=== PATIENT | female | born 1980 | race Caucasian/White ===

== ENCOUNTER → 2017-02-09 | Outpatient (REF) | payer OTHER | LOC: M LAB REF 16:54 | PROVIDERS: ATTEND Advanced Practice Midwife | DX: Z12.4 Encounter for screening for malignant neoplasm of cervix (principal) ==

== ENCOUNTER → 2017-09-12 | Outpatient (REF) | payer OTHER ==
[2017-09-12 12:38] LABS: ALBUMIN 4.1 GM/DL (3.2-5.2); ALBUMIN/GLOBULIN RATIO 1.24 (1.00-1.93); ALKALINE PHOSPHATASE 36 U/L (45-117); ALT/SGPT 27 U/L (12-78); ANION GAP 2 MEQ/L (8-16); AST/SGOT 17 U/L (7-37); BILIRUBIN,TOTAL 0.7 MG/DL (0.2-1.0); BLOOD UREA NITROGEN 9 MG/DL (7-18); CARBON DIOXIDE LEVEL 30 MEQ/L (21-32); CHLORIDE LEVEL 109 MEQ/L (98-107); CHOLESTEROL LEVEL 188 MG/DL (<200); CHOLESTEROL RISK RATIO 3.186 (<5); CREATININE FOR GFR 1.01 MG/DL (0.55-1.30); GLOMERULAR FILTRATION RATE > 60.0 (>60); GLUCOSE, FASTING 82 MG/DL (70-100); HDL CHOLESTEROL 59 MG/DL (>40); LDL CHOLESTEROL 113.2 MG/DL (<100); NON-HDL-C 129 MG/DL; POTASSIUM SERUM 4.1 MEQ/L (3.5-5.1); SODIUM LEVEL 141 MEQ/L (136-145); TOTAL PROTEIN 7.4 GM/DL (6.4-8.2); TRIGLYCERIDES LEVEL 79 MG/DL (<150)
== END ==
LOC: M SFHCPLAZ 10:02
DX: Z00.00 Encounter for general adult medical examination without abnormal findings (principal); Z83.42 Family history of familial hypercholesterolemia; Z83.49 Family history of other endocrine, nutritional and metabolic diseases
CPT/HCPCS: 84443

== ENCOUNTER → 2018-04-27 | Outpatient (CLI) | payer OTHER ==
[2018-04-27 23:01] LABS: CHLAMYDIA DNA AMPLIFICATION NEGATIVE (NEGATIVE); GC DNA AMPLIFICATION NEGATIVE (NEGATIVE)
[2018-04-28 11:29] LABS: HEPATITIS A ANTIBODY IGM NEGATIVE (NEGATIVE); HEPATITIS B CORE ANTIBODY IGM NEGATIVE (NEGATIVE); HEPATITIS B SURFACE ANTIGEN NEGATIVE (NEGATIVE); HIV 1&2 SCREEN CENTAUR NEGATIVE (NEGATIVE)
[2018-04-28 11:29] LABS: HEPATITIS C VIRUS ABY INDEX 0.1 INDEX (<0.8)
[2018-04-30 00:06] LABS: HSV IgM TYPES 1&2 <0.91 Ratio (0.00-0.90); HSV TYPE I IgG SPECIFIC <0.91 index (0.00-0.90); HSV TYPE II IgG SPECIFIC <0.91 index (0.00-0.90)
== END ==
LOC: M LAB 16:23
DX: Z11.3 Encounter for screening for infections with a predominantly sexual mode of transmission (principal)
CPT/HCPCS: 87340

== ENCOUNTER → 2019-07-23 | Outpatient (CLI) | payer OTHER ==
--- NOTE | 2019-07-23 09:45 | REP ---
MRI STUDY OF THE LEFT KNEE WITHOUT CONTRAST: HISTORY: Pain in the left knee. Chronic knee pain. No known injury. Rule out lateral meniscal tear. No comparison imaging. TECHNIQUE: Axial, coronal, and sagittal imaging planes utilized. Proton density and T2-weighted scans were obtained with and without fat saturation. MRI FINDINGS: There is a [id number] joint effusion. There is a janeth articular fluid collection associated with the posterior aspect of the proximal tibiofibular articulation. This fluid collection is septated and is seen within the posterior and lateral popliteal soft tissues 12 mm in greatest diameter on axial images x 30 mm in greatest craniocaudal span. There is another smaller fluid collection extending posteriorly from the region of the intercondylar notch into the perivascular soft tissues. This fluid collection measures 20 mm in craniocaudal span. There is a zone of marrow edema in the lateral femoral condyle anteriorly at the level of the intercondylar notch. There is a focal articular cartilage full-thickness defect here and there is moderate chondromalacia of the opposing lateral patellar facet articular cartilage. There is some marrow edema at the inferior pole the patella. Cortical and medullary bone signal intensity are otherwise normal. Patellar and quadriceps tendons are intact. Anterior and posterior cruciate ligaments have an intact appearance. There is no evidence of medial or lateral collateral ligament disruption. There is medial and lateral tibial femoral articular spurring. No medial or lateral meniscal tear is appreciated. No other articular cartilage lesion is seen. 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 Focal articular cartilage defect in the superior lateral aspect of the femoral trochlear articular cartilage with underlying marrow edema. Advanced chondromalacia patella laterally with some patellar marrow edema. Moderate to large joint effusion with two posterior and lateral periarticular fluid collections consistent with small ganglions. No evidence of meniscal tear seen. Electronically Signed by Sonido Trammell MD 07/23/2019 01:02 P
== END ==
LOC: M RAD 06:40
PROVIDERS: ATTEND Orthopaedic Surgery Sports Medicine
DX: M25.562 Pain in left knee (principal)

== ENCOUNTER → 2020-04-30 | Outpatient (REF) | payer OTHER | LOC: M SFHCWAGY 17:27 | PROVIDERS: ATTEND Advanced Practice Midwife | DX: Z12.4 Encounter for screening for malignant neoplasm of cervix (principal) ==

== ENCOUNTER → 2020-11-21 | Outpatient (CLI) | payer OTHER ==
[2020-11-21 13:42] LABS: ALBUMIN 3.8 GM/DL (3.2-5.2); ALT/SGPT 28 U/L (12-78); BILIRUBIN,TOTAL 0.5 MG/DL (0.2-1.0); BLOOD UREA NITROGEN 13 MG/DL (7-18); CALCIUM LEVEL 9.4 MG/DL (8.5-10.1); CARBON DIOXIDE LEVEL 28 MEQ/L (21-32); CHLORIDE LEVEL 108 MEQ/L (98-107); CHOLESTEROL LEVEL 202 MG/DL (<200); CHOLESTEROL RISK RATIO 3.366 (<5); CREATININE FOR GFR 1.01 MG/DL (0.55-1.30); GLOMERULAR FILTRATION RATE > 60.0 (>60); GLUCOSE, FASTING 93 MG/DL (70-100); HDL CHOLESTEROL 60 MG/DL (>40); LDL CHOLESTEROL 131 MG/DL (<100); NON-HDL-C 142 MG/DL; POTASSIUM SERUM 4.6 MEQ/L (3.5-5.1); SODIUM LEVEL 142 MEQ/L (136-145); TOTAL PROTEIN 6.9 GM/DL (6.4-8.2); TRIGLYCERIDES LEVEL 53 MG/DL (<150)
== END ==
LOC: M PLALAB 09:59
PROVIDERS: ATTEND Nurse Practitioner Adult Health
DX: Z00.00 Encounter for general adult medical examination without abnormal findings (principal); Z83.2 Family history of diseases of the blood and blood-forming organs and certain disorders involving the immune mechanism; Z83.42 Family history of familial hypercholesterolemia; Z83.49 Family history of other endocrine, nutritional and metabolic diseases

== ENCOUNTER → 2022-12-17 | Outpatient (CLI) | payer BC ==
[2022-12-17 10:56] LABS: THYROID STIMULATING HORMONE 3.607 uIU/ML (0.55-4.78)
[2022-12-17 10:57] LABS: ALBUMIN 3.7 G/DL (3.2-5.2); ALKALINE PHOSPHATASE 42 U/L (46-116); ALT/SGPT 15 U/L (7.0-40); AST/SGOT < 8 U/L (<34); BILIRUBIN,TOTAL 0.7 MG/DL (0.3-1.2); BLOOD UREA NITROGEN 19 MG/DL (9-23); CALCIUM LEVEL 9.2 MG/DL (8.5-10.1); CARBON DIOXIDE LEVEL 29 MMOL/L (20-31); CHLORIDE LEVEL 106 MMOL/L (98-107); CHOLESTEROL LEVEL 172 MG/DL (<200); CREATININE FOR GFR 0.98 MG/DL (0.55-1.30); GLOMERULAR FILTRATION RATE > 60.0 (>58); GLUCOSE, FASTING 92 MG/DL (60-100); HDL CHOLESTEROL 61.4 MG/DL (>40); LDL CHOLESTEROL 97.8 MG/DL (<100); NON-HDL-C 110.6 MG/DL; POTASSIUM SERUM 4.6 MMOL/L (3.5-5.1); SODIUM LEVEL 139 MMOL/L (136-145); TOTAL PROTEIN 6.6 G/DL (5.7-8.2); TRIGLYCERIDES LEVEL 64 MG/DL (<150)
== END ==
LOC: M PLALAB 08:59
PROVIDERS: ATTEND Nurse Practitioner Adult Health
DX: Z00.00 Encounter for general adult medical examination without abnormal findings (principal); Z83.3 Family history of diabetes mellitus; Z83.42 Family history of familial hypercholesterolemia; Z83.49 Family history of other endocrine, nutritional and metabolic diseases